=== PATIENT | male | born 1965 | race Caucasian/White ===

== ENCOUNTER 2018-05-16 09:40 | Day surgery (SDC) | payer OTHER ==
[2018-05-16] MEDS: NS 1,000 ML IV (11:00)
[2018-05-16] MEDS ORDERED: PROPOFOL 500 MG/50 ML VIAL As Ordered (11:07)
[2018-05-16] MEDS ORDERED: LIDOCAINE 2% INJ 100 MG/5 ML SDV (FOR ANES.) As Ordered (11:07)
== END 2018-05-16 12:00 | disposition home or self-care (01) ==
LOC: M OPP 09:40
DX: Z12.11 Encounter for screening for malignant neoplasm of colon (principal); D12.2 Benign neoplasm of ascending colon; D12.0 Benign neoplasm of cecum; K57.30 Diverticulosis of large intestine without perforation or abscess without bleeding; K64.8 Other hemorrhoids; Z88.0 Allergy status to penicillin
CPT/HCPCS: 45385

== ENCOUNTER → 2022-03-02 | Outpatient (CLI) | payer OTHER | LOC: M WUC 09:08 | PROVIDERS: ATTEND Physician Assistant | DX: M79.644 Pain in right finger(s) (principal) ==

== ENCOUNTER → 2022-05-29 | Outpatient (REF) | payer OTHER | LOC: M SFHCPLAZ 17:18 | PROVIDERS: ATTEND Nurse Practitioner Adult Health | DX: R39.198 Other difficulties with micturition (principal) ==

== ENCOUNTER → 2023-08-23 | Outpatient (REF) | payer OTHER | LOC: M PLALAB 09:52 | PROVIDERS: ATTEND Urology | DX: Z12.5 Encounter for screening for malignant neoplasm of prostate (principal) | CPT/HCPCS: 36415; G0103 ==

== ENCOUNTER → 2024-03-04 | Outpatient (CLI) | payer OTHER | LOC: M PLALAB 07:42 | PROVIDERS: ATTEND Urology | DX: R97.20 Elevated prostate specific antigen [PSA] (principal) ==

== ENCOUNTER → 2025-03-15 | Outpatient (CLI) | payer OTHER | LOC: M PLALAB 11:17 | PROVIDERS: ATTEND Urology | DX: Z12.5 Encounter for screening for malignant neoplasm of prostate (principal) ==